=== PATIENT | male | born 1960 | race Caucasian/White ===

== ENCOUNTER 2018-02-03 20:45 | Emergency (ER) | payer OTHER ==
[~2018-02-03] VITALS: Ht 172.7 cm; Wt 69.9 kg
[~2018-02-03 20:45] MED LIST: AMOXIL500 MG PO; AUGMENTIN 875 M1 TAB PO; COMBIVENT1 ARO INH; IBU600 MG PO; KEFLEX500 M1 PO
--- NOTE | 2018-02-03 21:04 | ED GI/GU/ABDOMINAL COMPLAINT ---
History of Present Illness General Chief Complaint: Abdominal Pain/Flank Pain Stated Complaint: UPPER EPI-GASTRIC PAIN Source: patient Exam Limitations: no limitations Vital Signs & Intake/Output Vital Signs & Intake/Output Vital Signs Date Time Temp Pulse Resp B/P B/P Pulse O2 O2 Flow FiO2 Mean Ox Delivery Rate 02/03 2151 97.8 66 18 113/62 97 Room Air Room Air 02/03 2049 98.6 71 18 136/83 97 Room Air ED Intake and Output 02/04 0000 02/03 1200 Intake Total Output Total Balance Patient 154 lb Weight Weight Reported by Patient Measurement Method Allergies Coded Allergies: NO KNOWN ALLERGIES (10/27/15) Reconcile Medications Cephalexin (Keflex) 500 MG CAPSULE 1 CAP PO TID INFECTION [MAGIC MOUTH WASH] 10 ML PO TID PRN PUD 1:1:1 EQUAL PARTS Omeprazole 20 MG TABLET.DR 1 TAB PO DAILY PUD Triage Note: PT FROM HOME C/O UPPER ABD PAIN "ACID REFLUX LIKE PAIN" 03/16. PT STATES PAIN BEGAN YESTERDAY INTERMITTENTLY. PT STATES SOME NAUSEA, -VOMITING,-ARM NUMBNESS/TINGLING, -CP, -BACK OR JAW PAIN. PT STATES HE ONLY ATE SOUP TODAY BECAUSE OF THE "UPSET STOMACH", VSS. Triage Nurses Notes Reviewed? yes Onset: Abrupt Duration: constant Timing: recent history Quality/Severity: burning Severity Numbers: 5 Location: epigastric Radiation: no radiation HPI: Patient is a 57-year-old male who presents emergency room stating that yesterday 3 hours after eating soup he had gradual onset of localized epigastric pain that since patient has had worsening pain upon eating and drinking. Patient denies any alcohol intake however does state that 3 years he's been sober. Denies any fever chills chest pain shortness breath arm pain jaw pain nausea vomiting Patient does take ibuprofen on occasion for chronic back pain Last bowel movement was yesterday no blood no melena Patient does smoke tobacco. Denies any testicular pain or swelling or lower abdominal pain (Jose Arechiga) Past History Travel History Traveled to [place] past 21 day No Medical History Any Pertinent Medical History? 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 No (Jose Arechiga) Review of Systems Review of Systems Constitutional: Reports: no symptoms. EENTM: Reports: no symptoms. Respiratory: Reports: no symptoms. Cardiovascular: Reports: no symptoms. GI: Reports: see HPI, abdominal pain. Genitourinary: Reports: no symptoms. Musculoskeletal: Reports: no symptoms. Skin: Reports: no symptoms. Neurological/Psychological: Reports: no symptoms. Hematologic/Endocrine: Reports: no symptoms. Immunologic/Allergic: Reports: no symptoms. All Other Systems: Reviewed and Negative (Jose Arechiga) Physical Exam Physical Exam General Appearance: no apparent distress, alert Head: atraumatic Eyes: Bilateral: normal appearance. Ears, Nose, Throat, Mouth: hearing grossly normal Neck: normal inspection Respiratory: normal breath sounds, chest non-tender Cardiovascular: regular rate/rhythm Gastrointestinal: normal bowel sounds, soft, EPIGASTRIC POINT TENDERNESS NOTED NO RIGHT LOWER QUADRANT PAIN NO PERITONEAL SIGNS Back: normal inspection Skin: intact, normal color Core Measures ACS in differential dx? Yes Sepsis Present: No Sepsis Focused Exam Completed? No (Jose Arechiga) Progress Differential Diagnosis: AAA, AMI, appendicitis, biliary colic, bowel obstruction , colon cancer, cholecystitis, diverticulitis, epididymitis, esophageal varices, gastritis, hepatitis, hernia, hemorrhoids, ischemic bowel, inflamm bowel dis, Felicia-Minesh tear, orchitis, pancreatitis, prostatitis, peptic ulcer, PUD/GERD, perforated viscous, pyelonephritis, SBO, testicular torsion, ureterolithiasis, urinary retention, urethritis, UTI/pyelo Plan of Care: Orders Procedure Date/time Status AMYLASE 02/03 2055 Complete TROPONIN LEVEL 02/04 2048 Complete LIPASE 02/04 2048 Complete COMPREHENSIVE METABOLIC PANEL 02/04 2048 Complete CBC WITHOUT DIFFERENTIAL 02/04 2048 Complete EKG 02/04 2048 Active Laboratory Tests 02/03/182054: Amylase Cancelled 02/03/182054: Anion Gap 11, Estimated GFR > 60, BUN/Creatinine Ratio 16.0, Glucose 93, Calcium 9.4, Total Bilirubin 0.7, AST 13 L, ALT 18 L, Alkaline Phosphatase 68, Troponin I < 0.01, Total Protein 7.2, Albumin 4.4, Globulin 2.8, Albumin/ Globulin Ratio 1.6, Amylase 101, Lipase 239, CBC w Diff NO MAN DIFF REQ, RBC 4.91, MCV 86.8, MCH 28.5, MCHC 32.8 L, RDW 14.5, MPV 7.3 L, Gran % 70.3, Lymphocytes % 20.5, Monocytes % 6.1, Eosinophils % 2.5, Basophils % 0.6, Absolute Granulocytes 7.5 H, Absolute Lymphocytes 2.2, Absolute Monocytes 0.7 H, Absolute Eosinophils 0.3, Absolute Basophils 0.1 On initial presentation patient is resting comfortably at bedside no apparent distress denies any respiratory complaints, patient has reproducible epigastric pain no right lower quadrant pain concerns appendicitis ekg was unremarkable patient was given gi cocktail no concerns at this time of gi bleed After GI cocktail was administered patient had complete resolution of his pain. EKG and blood work were unremarkable. Upon discharge patient looks well no apparent distress he was strongly advised to discontinue NSAIDs and follow up with GI Initial ED EKG: normal p-waves, normal QRS complex, 63 BPM,NSR (Jose Arechiga) Departure Departure Disposition: HOME OR SELF CARE Condition: Stable Clinical Impression Primary Impression: PUD (peptic ulcer disease) Secondary Impressions: Epigastric abdominal pain Referrals: Jonatan Carroll APRN (PCP/Family) Ness DYSON,Neal Long Additional Instructions: As discussed please discontinue the use of NSAID such as ibuprofen and Advil or Aleve, begin [id number] Tylenol for your pain, begin the prescription of omeprazole for symptoms and the prescription of Magic mouthwash for your symptoms, on Tuesday please follow-up with radio commentator Dr. Arzola for further treatment. If symptoms worsen return to emergency room Departure Forms: Customer Survey General Discharge Information Prescriptions: Current Visit Scripts Omeprazole 1 TAB PO DAILY #30 TAB [MAGIC MOUTH WASH] 10 ML PO TID PRN PUD #100 ML 1:1:1 EQUAL PARTS (Jose Arechiga) PA/PIPE AND TEST SUPERVISOR Co-Sign Statement Statement: ED Attending supervision documentation- [] I saw and evaluated the patient. I have also reviewed all the pertinent lab results and diagnostic results. I agree with the findings and the plan of care as documented in the PA's/PIPE AND TEST SUPERVISOR's documentation. [x] I have reviewed the ED Record and agree with the PA's/PIPE AND TEST SUPERVISOR's documentation. [] Additions or exceptions (if any) to the PAs/PIPE AND TEST SUPERVISOR's note and plan are summarized below: [] (Mitesh DYSON,Adam Sanches)
[2018-02-03 21:05] LABS: ABSOLUTE BASOPHIL COUNT 0.1 /CUMM (0.0-0.2); ABSOLUTE EOSINOPHIL COUNT 0.3 /CUMM (0.0-0.7); ABSOLUTE GRANULOCYTE CT 7.5 /CUMM (1.4-6.5); ABSOLUTE LYMPH COUNT 2.2 /CUMM (1.2-3.4); ABSOLUTE MONOCYTE COUNT 0.7 /CUMM (0.10-0.60); BASOPHIL % 0.6 % (0.0-2.0); EOSINOPHIL % 2.5 % (0-5); GRANULOCYTE % 70.3 % (42.2-75.2); HEMATOCRIT 42.6 % (42-52); MEAN CORPUSCULAR HGB 28.5 PG (27.0-31.0); MEAN CORPUSCULAR HGB CONC 32.8 G/DL (33.0-37.0); MEAN CORPUSCULAR VOLUME 86.8 FL (80.0-94.0); MEAN PLATELET VOLUME 7.3 FL (7.4-10.4); PLATELET COUNT 253 /CUMM (130-400); RBC DISTRIBUTION WIDTH 14.5 % (11.5-14.5); RED BLOOD CELL CT 4.91 /CUMM (4.70-6.10); WHITE BLOOD CELL COUNT 10.7 /CUMM (4.8-10.8)
[2018-02-03 21:51] VITALS: BP 113/62
[2018-02-03] MEDS ORDERED: OMEPRAZOLE20 M3 PO (22:08)
[2018-02-03] MEDS ORDERED: MAGIC MOUTH WASH PO (22:08)
== END 2018-02-03 22:21 ==
LOC: ERH 20:45
PROVIDERS: Physician Assistant Medical
DX: K27.9 Peptic ulcer, site unspecified, unspecified as acute or chronic, without hemorrhage or perforation (principal)
CPT/HCPCS: 93005; 93010

== ENCOUNTER 2018-02-08 22:18 | Emergency (ER) | payer OTHER ==
[~2018-02-08] VITALS: Ht 172.7 cm; Wt 65.8 kg
[~2018-02-08 22:18] MED LIST changes: +MAGIC MOUTH WASH PO; +OMEPRAZOLE20 M3 PO
[2018-02-08 22:29] VITALS: BP 37/75
--- NOTE | 2018-02-08 23:12 | ED SKIN/ALLERGY COMPLAINT ---
History of Present Illness General Chief Complaint: Allergy Symptoms Stated Complaint: "MY BODY SWOLLEN ALL OVER" Source: patient, old records Exam Limitations: no limitations Vital Signs & Intake/Output Vital Signs & Intake/Output Vital Signs Date Time Temp Pulse Resp B/P B/P Pulse O2 O2 Flow FiO2 Mean Ox Delivery Rate 02/08 2229 98.5 76 18 37/75 96 Room Air Allergies Coded Allergies: NO KNOWN ALLERGIES (10/27/15) Reconcile Medications Cephalexin (Keflex) 500 MG CAPSULE 1 CAP PO TID INFECTION [MAGIC MOUTH WASH] 10 ML PO TID PRN PUD 1:1:1 EQUAL PARTS Omeprazole 20 MG TABLET. 1 TAB PO DAILY PUD Triage Note: RECEIVED 57 YO MALE PRESENTS TO THE ED WITH HIVES ALL OVER BODY, NOTICED IT TONIGHT. NO C/O WHEEZING, STRIDOR OR SOB. PT REPORTS HE WAS HERE 02/03 FOR ABDOMINAL PAIN AND PRESCRIBED OMEPRAZOLE AND MAGIC MOUTHWASH Triage Nurses Notes Reviewed? yes Onset: Just prior to arrival Duration: hour(s):, constant, continues in ED Timing: recent history Severity: moderate Location: generalized Possible Factors: exposure to allergen, medications Modifying Factors: Improves With: scratching. Associated Symptoms: rash HPI: 5 days prior to admission patient was prescribed omeprazole and Magic mouthwash. Several hours prior to admission he noted generalized itchy rash. He denies fever chills nausea vomiting diarrhea abdominal pain chest pain shortness of breath headache dysuria bleeding new soap shampoo detergent foods. Past History Travel History Traveled to [place] past 21 day No Medical History Any Pertinent Medical History? 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 No Review of Systems Review of Systems Constitutional: Reports: no symptoms. EENTM: Reports: no symptoms. Respiratory: Reports: no symptoms. Cardiovascular: Reports: no symptoms. GI: Reports: no symptoms. Genitourinary: Reports: no symptoms. Musculoskeletal: Reports: no symptoms. Skin: Reports: see HPI, rash. Neurological/Psychological: Reports: no symptoms. Hematologic/Endocrine: Reports: no symptoms. Immunologic/Allergic: Reports: no symptoms. All Other Systems: Reviewed and Negative Physical Exam Physical Exam General Appearance: well developed/nourished, alert, awake, anxious, mild distress Head: atraumatic, normal appearance Eyes: Bilateral: normal appearance, PERRL, EOMI. Ears, Nose, Throat: normal pharynx, normal ENT inspection, hearing grossly normal Neck: normal inspection, supple, full range of motion, no midline tenderness Respiratory: normal breath sounds, chest non-tender, no respiratory distress, quiet respiration, lungs clear Cardiovascular: regular rate/rhythm, normal peripheral pulses, norml femoral pulses equa Peripheral Pulses: 4+ carotid (R), 4+ carotid (L) Gastrointestinal: normal bowel sounds, soft, non-tender, no organomegaly Back: normal inspection, normal range of motion, no vertebral tenderness Extremities: normal inspection, normal capillary refill, normal range of motion, no edema Neurologic/Psych: no motor/sensory deficits, awake, alert, oriented x 3, normal gait, normal mood/affect, frame aligner II-XII nml as tested Reflexes: 2+: bicep (R), bicep (L). Skin: intact, rash Skin Problem Location: generalized Skin Problem Character: rash, urticarial Lymphatic: no anterior cervical gemma Progress Differential Diagnosis: allergic reaction, contact dermatitis Plan of Care: Current Medications Sig/Jimbo Start time Last Medication Dose Stop Time Status Admin Diphenhydramine HCl 25 MG ONCE ONE 02/08 2330 UNVr (Benadryl) 02/08 2331 Famotidine 20 MG ONCE ONE 02/08 2330 UNVr (Pepcid) 02/08 2331 Prednisone 60 MG ONCE ONE 02/08 2330 UNVr 02/08 2331 prednisone pepcid benadryl Departure Departure Time of Disposition: 2315 Disposition: HOME OR SELF CARE Condition: Stable Clinical Impression Primary Impression: Urticaria medicamentosa Referrals: Jonatan Carroll APRN (PCP/Family) Additional Instructions: Stop omeprazole and magic mouthwash Departure Forms: Customer Survey General Discharge Information Prescriptions: Current Visit Scripts Famotidine (Pepcid) 1 TAB PO BID #10 TAB Diphenhydramine HCl (Benadryl Allergy) 1-2 TAB PO Q6P PRN itchy rash #30 TAB Ref 1 Prednisone 1 TAB PO BID #10 TAB
[2018-02-08] MEDS ORDERED: PREDNISONE20 M1 PO (23:18)
[2018-02-08] MEDS ORDERED: BENADRYL ALLERG25 M2 PO (23:18)
[2018-02-08] MEDS ORDERED: PEPCID20 M1 PO (23:18)
== END 2018-02-08 23:29 ==
LOC: ERH 22:18
DX: L50.9 Urticaria, unspecified (principal)